=== PATIENT | female | born 1945 | race African-American/Black ===

== ENCOUNTER → 2022-09-13 | Outpatient (CLI) | payer MEDICARE, OTHER ==
[~2022-09-13] MED LIST: BENA10TA77 PO; CARV12.580 PO; CLOP75TA60 PO; METF-444 PO; OXYB92GE TD; SIMV-43 PO
== END | disposition home or self-care (01) ==
LOC: RADMN 10:17
PROVIDERS: ATTEND Internal Medicine
DX: R05.3 Chronic cough (principal); I51.7 Cardiomegaly; M47.814 Spondylosis without myelopathy or radiculopathy, thoracic region
CPT/HCPCS: 71046

== ENCOUNTER 2024-05-24 01:59 | Emergency (ER) | payer MEDICARE, OTHER ==
[~2024-05-24] VITALS: Ht 157.5 cm; Wt 85.5 kg
[~2024-05-24 01:59] MED LIST changes: +BENA-16 PO; -BENA10TA77 PO
[2024-05-24 02:04] VITALS: TEMP 98.1
[2024-05-24 02:33] VITALS: BP 131/76; PULSE 104; RESP 15; O2SAT 98
[2024-05-24] MEDS: ACETAMINOPHEN 325 MG TABLET PO ONE (03:09)
[2024-05-24] MEDS: LIDOCAINE 5% TRANSDERMAL PATCH TD ONE (03:10)
== END 2024-05-24 05:31 | disposition home or self-care (01) ==
LOC: EMS 01:59
DX: R07.81 Pleurodynia (principal); E78.00 Pure hypercholesterolemia, unspecified; E11.9 Type 2 diabetes mellitus without complications; I25.10 Atherosclerotic heart disease of native coronary artery without angina pectoris; I10 Essential (primary) hypertension; Z90.49 Acquired absence of other specified parts of digestive tract; Z96.651 Presence of right artificial knee joint; Z88.0 Allergy status to penicillin
CPT/HCPCS: 71101; 82962; 99283